=== PATIENT | female | born 2000 | race Caucasian/White ===

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

== ENCOUNTER 2019-02-17 00:52 | Emergency (ER) | payer BC ==
--- OUTSIDE RECORDS SUMMARY | 2019-02-17 01:08 | XMS REPORT | Continuity of Care Document ---
:2000 External Reference #:[id number] Author Name Maite Salter Care Team Providers Name Role Phone Jim Rucker M.D. Care Team Information Professional Fee Coder Unavailable Payers Date Identification Numbers Payment Provider Subscriber Policy Number: [id number] BS Of REHANA Alexis PayID: [id number] [address] [address] [place] [address] Advance Directives Description No Information Available Problems Active Problems Provider Date Trigeminal neuralgia Jim Rucker M.D. 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-handed Tobacco Use Start: Unknown Never Smoked Cigarettes Tobacco Use Start: Unknown Never Smoked Cigars Tobacco Use Start: Unknown Never Smoked A Pipe Smokeless Tobacco Never Used Smokeless Tobacco ETOH Use Denies alcohol use Tobacco Use Start: Unknown Patient has never smoked Recreational Drug Use Denies Drug Use Smoking Status Reviewed: 02/15/19 Patient has never smoked Exercise Type/Frequency Does not exercise Allergies, Adverse Reactions, Alerts Active Allergies Reaction Severity Comments Date Omnicef 10/31/2017 Inactive Allergies NKDA 04/12/2016 Medications Active Medications SIG Qnty Indications Ordering Provider Date Lyrica take 1 pill 60caps G50.0 Jim Rucker, 02/19/2018 150mg Capsules by mouth M.D. twice a day Carbamazepine ER take 3 by 180caps G50.0 Jim Rucker, 12/11/2017 100mg mouth twice a M.D. Caps ER 12HR day Calcium + D3 1 by mouth Unknown every day [id number] Tablets Escitalopram Oxalate 1 by mouth Unknown 5mg every day Tablets Escitalopram Oxalate 1 by mouth Unknown 20mg every day Tablets Fish Oil Burp-Less 1 by mouth Unknown 1000mg every day Capsules History Medications Lyrica Take 1 by mouth 60caps G50.0 [facility], 01/05/2018 - 75mg Capsules twice a day M.D. 02/19/2018 Lyrica 1 by mouth 60caps G50.0 [facility], 12/22/2017 - 50mg Capsules twice a day M.D. 01/05/2018 Carbamazepine ER take 2 by mouth 180caps G50.0 [facility], 2017 - 100mg twice a day M.D. 12/11/2017 Caps ER 12HR Carbamazepine ER Take 2 by mouth 120caps G50.0 [facility], 2017 - 100mg twice a day M.D. 12/08/2017 Caps ER 12HR Augmentin 1 by mouth 20tabs [facility], 04/12/2016 - 875-125mg twice a day for M.D. 11/05/2017 Tablets 10 days Celexa 1 by mouth Unknown - 20mg Tablets every day 11/05/2017 Vitamin D by mouth Unknown - 1000Unit everyday 11/05/2017 Tablets Trazodone HCL 1/2-1 tablet at Unknown - 50mg bedtime as 11/23/2017 Tablets needed Hydroxyzine HCL 1-2 tablets by Unknown - 25mg mouth every 8 08/02/2018 Tablets hours as needed for anxiety. Amethia daily- pt Unknown - stopped 02/18/2018 0.15-0.03&0.01mg 02/19/18 Tablets Immunizations Description No Information Available Vital Signs Date Vital Result Comment 02/15/2019 1:13pm Height 68.5 inches 5'8.50" Weight 324.00 lb Heart Rate 80 /min BP Systolic 124 mmHg BP Diastolic 82 mmHg BMI (Body Mass Index) 48.5 kg/m2 08/03/2018 9:25am Height 68.5 inches 5'8.50" Weight 320.00 lb Heart Rate 76 /min BP Systolic 112 mmHg BP Diastolic 80 mmHg Respiratory Rate 16 /min BMI (Body Mass Index) 47.9 kg/m2 Height Percentile 95 % Weight Percentile >97th 02/19/2018 11:20am Height 68.5 inches 5'8.50" Weight 300.00 lb Declined Heart Rate 78 /min BP Systolic Sitting 128 mmHg BP Diastolic Sitting 82 mmHg BMI (Body Mass Index) 44.9 kg/m2 Height Percentile 95 % Weight Percentile >97th 12/22/2017 3:38pm Height 68.5 inches 5'8.50" Weight 290.00 lb Heart Rate 74 /min BP Systolic Sitting 126 mmHg BP Diastolic Sitting 68 mmHg Respiratory Rate 16 /min BMI (Body Mass Index) 43.4 kg/m2 Blood Pressure Percentile 0 % Height Percentile 95 % Weight Percentile >97th 11/24/2017 9:16am Height 68.5 inches 5'8.50" Weight 290.00 lb Heart Rate 88 /min BP Systolic Sitting 132 mmHg BP Diastolic Sitting 88 mmHg Respiratory Rate 16 /min BMI (Body Mass Index) 43.4 kg/m2 Blood Pressure Percentile 0 % Height Percentile 95 % Weight Percentile >97th 11/10/2017 12:50pm Height 68.5 inches 5'8.50" Weight 294.00 lb without shoes Heart Rate 100 /min BP Systolic 150 mmHg Rue lg cuff BP Diastolic 72 mmHg Rue lg cuff BP Systolic Sitting 144 mmHg Lue lg cuff BP Diastolic Sitting 70 mmHg Lue lg cuff BP Systolic Standing 140 mmHg Lue lg cuff BP Diastolic Standing 78 mmHg Lue lg cuff BP Systolic Recheck 128 mmHg Rue Lg cuff-MD BP Diastolic Recheck 80 mmHg Rue Lg cuff-MD Respiratory Rate 17 /min BMI (Body Mass Index) 44.0 kg/m2 Blood Pressure Percentile 99 % Height Percentile 95 % Weight Percentile >97th 04/12/2016 2:20pm Weight 240.00 lb Heart Rate 78 /min BP Systolic Sitting 120 mmHg BP Diastolic Sitting 82 mmHg Blood Pressure Percentile 0 % Weight Percentile >97th Results Test Date Facility Test Result H/L Range Note CBC Auto Diff 08/10/2018 [facility] White Blood 8.5 10^3/uL N 3.5-10.[address] [place] [address] [phone] Red Blood Count 4.66 10^6/uL N 4.00-5.40 Hemoglobin 12.9 g/dL N 12.0-16.0 Hematocrit 39 % N 35-47 Mean Corpuscular Volume 84 fL N 80-97 Mean Corpuscular Hemoglobin 28 pg N 27-31 Mean Corpuscular HGB Conc 33 g/dL N 31-36 Red Cell Distribution Width 15 % N 10.5-15 Platelet Count 241 10^3/uL N 150-450 Mean Platelet Volume 9.2 um3 N 7.4-10.4 Abs Neutrophils 5.7 10^3/uL N 1.5-7.7 Abs Lymphocytes 1.8 10^3/uL N 1.0-4.8 Abs Monocytes 0.7 10^3/uL N 0-0.8 Abs Eosinophils 0.2 10^3/uL N 0-0.6 Abs Basophils 0.1 10^3/uL N 0-0.2 Abs Nucleated RBC 0 10^3/uL Granulocyte % 67.5 % N 38-83 Lymphocyte % 21.1 % Low 25-47 Monocyte % 8.3 % High 0-7 Eosinophil % 2.4 % N 0-6 Basophil % 0.7 % N 0-2 Nucleated Red Blood Cells % 0.1 Comp Metabolic Panel 08/10/2018 [facility] Sodium 138 mmol/L N 135-[address] [place] [address] [phone] Potassium 3.9 mmol/L N 3.5-5.0 Chloride 107 mmol/L N 101-111 Co2 Carbon Dioxide 27 mmol/L N 22-32 Anion Gap 4 mmol/L N 2-11 Glucose 95 mg/dL N 70-100 Blood Urea Nitrogen 10 mg/dL N 6-24 Creatinine 0.60 mg/dL N 0.51-0.95 BUN/Creatinine Ratio 16.7 N 8-20 Calcium 9.2 mg/dL N 8.6-10.3 Total Protein 6.5 g/dL N 6.4-8.9 Albumin 4.0 g/dL N 3.2-5.2 Globulin 2.5 g/dL N 2-4 Albumin/Globulin Ratio 1.6 N 1-3 Total Bilirubin 0.30 mg/dL N 0.2-1.0 Alkaline Phosphatase 123 U/L High 34-104 Alt 15 U/L N 7-52 Ast 16 U/L N 13-39 Egfr Non- 128.8 >60 Egfr 155.8 >60 1 Laboratory 08/10/2018 [facility] Carbamazepine 4.0 N 4.0-12.0 test finding [address] (Tegretol) g/mL [place], [place] [id number] [phone] Laboratory 12/25/2017 [facility] C Reactive 21.18 High < 5.00 2 test finding [address] Protein mg/[place] [address] [phone] Erythrocyte Sed Rate 27 mm/Hr High 0-14 3 Laboratory 12/18/2017 [facility] Carbamazepine 9.9 N 4.0-12.0 test finding [address] (Tegretol) g/mL [place], [place] [id number] [phone] Laboratory 11/29/2017 [facility] Erythrocyte Sed 25 mm/Hr High 0-14 test finding [address] [place] [address] [phone] C Reactive Protein 27.79 mg/L High < 5.00 4 Anca Panel For 11/29/2017 [facility] Myeloperoxidase AB < 0.2 U [address] [place] [address] [phone] Proteinase 3 AB < 0.2 U 6 Laboratory test 11/29/2017 [facility] Carbamazepine 8.3 g/mL N 4.0-12.[address] (Tegretol) [place] [address] [phone] Complement C3 143 mg/dL 75 - 175 7 Complement C4 25 mg/dL 14 - 40 8 Nuclear Ab (Eveline) by Ifa, IgG <1:80 (Negative) 9 CBC Auto Diff 11/29/2017 [facility] White Blood 6.6 10^3/uL N 3.5-10.[address] [place] [address] [phone] Red Blood Count 4.97 10^6/uL N 4.0-5.4 Hemoglobin 12.2 g/dL N 12.0-16.0 Hematocrit 38 % N 35-47 Mean Corpuscular Volume 76 fL Low 80-97 Mean Corpuscular Hemoglobin 25 pg Low 27-31 Mean Corpuscular HGB Conc 32 g/dL N 31-36 Red Cell Distribution Width 17 % High 10.5-15 Platelet Count 303 10^3/uL N 150-450 Mean Platelet Volume 9 um3 N 7.4-10.4 Abs Neutrophils 3.9 10^3/uL N 1.5-7.7 Abs Lymphocytes 1.8 10^3/uL N 1.0-4.8 Abs Monocytes 0.7 10^3/uL N 0-0.8 Abs Eosinophils 0.1 10^3/uL N 0-0.6 Abs Basophils 0.1 10^3/uL N 0-0.2 Abs Nucleated RBC 0 10^3/uL Granulocyte % 58.4 % N 38-83 Lymphocyte % 27.4 % N 25-47 Monocyte % 11.0 % High 1-9 Eosinophil % 2.1 % N 0-6 Basophil % 1.1 % N 0-2 Nucleated Red Blood Cells % 0.1 1 Because ethnic data is not always readily available, this report includes an eGFR for both -Americans and non- Americans. The National Kidney Disease Education Program (NKDEP) does not endorse the use of the MDRD equation for patients that are not between the ages of 18 and 70, are , have extremes of body size, muscle mass, or nutritional status, or are non- or non-. According to the National Kidney Foundation, irrespective of diagnosis, the stage of the disease is based on the level of kidney function: Stage Description GFR(mL/min/1.73 m(2)) 1 Kidney damage with normal or decreased GFR 90 2 Kidney damage with mild decrease in GFR 60-89 3 Moderate decrease in GFR 30-59 4 Severe decrease in GFR 15-29 5 Kidney failure <15 (or dialysis) 2 Acute inflammation: >10.00 3 Copy Result to: AZRA GAINES ([id number]) 4 Acute inflammation: >10.00 5 REFERENCE VALUE <0.4 (Negative) 6 REFERENCE VALUE <0.4 (Negative) Test Performed by: [facility] [place] [address] [place] [address] 7 Test Performed by: [facility] [place] [address] [place] [address] 8 Test Performed by: [facility] [address] [place] [address] 9 <1:80 (Negative) REFERENCE VALUE <1:80 (Negative) Test Performed by: [address] [address] Procedures Date Code Description Status 05/23/2018 67596 Colonoscopy Flexible W/Biopsy Completed 05/23/2018 78775 Endoscopy Upper GI Biopsy Completed 05/23/2018 95191000 Colonoscopy Completed 11/10/2017 18632 EKG Tracing & Interpretation Completed Encounters Type Date Location Provider Dx Diagnosis Office Visit 08/03/2018 [facility] Jim Rucker G50.0 Trigeminal 9:15a [facility] neuralgia Office Visit 02/19/2018 [facility] Jim Rucker G50.0 Trigeminal 11:00a [facility] neuralgia Office Visit 12/22/2017 [facility] Jim Rucker G50.0 Trigeminal 3:15p [facility] neuralgia Office Visit 11/24/2017 [facility] Jim Rucker G50.0 Trigeminal 9:00a [facility] neuralgia Office Visit 11/10/2017 [facility] Chilo Carson, R06.02 Shortness of 1:00p Is[facility] Champagne, FACC, FASNC breath I10 Essential (primary) hypertension Z82.49 Family hx of ischem heart dis and oth dis of the circ sys Office Visit 04/12/2016 2:15p [facility] Pfeiffer.90 Acute tonsillitis, C.M.A. AT Sarah, M.D. unspecified [place] Office Visit 02/08/2013 3:00p Ag Vargas 729.5 Pain In Limb Neurolog[facility] 782.0 Skin Sensation Disturbance Plan of Treatment Future Appointment(s):08/19/2019 1:30 pm - Adonis Romero N.P. at [facility]02/15/2019 - Adonis Romero N.P.G50.0 Trigeminal neuralgiaFollow up:6 monthsRecommendations:have labs checked first thing in the morning before taking medications
[2019-02-17 01:46] LABS: ABS Basophils 0.1 10^3/ul (0-0.2); ABS Eosinophils 0.1 10^3/ul (0-0.6); ABS Lymphocytes 2.7 10^3/ul (1.0-4.8); ABS Neutrophils 5.7 10^3/ul (1.5-7.7); Eosinophil % 1.5 %; Hematocrit 43 % (35-47); Hemoglobin 14.2 g/dL (12.0-16.0); Lymphocyte % 27.9 %; Mean Corpuscular HGB Conc 33 g/dL (31-36); Mean Corpuscular Hemoglobin 29 pg (27-31); Mean Corpuscular Volume 86 fL (80-97); Mean Platelet Volume 8.4 fL (7.4-10.4); Nucleated Red Blood Cells % 0.1; Platelet Count 261 10^3/uL (150-450); Red Blood Count 4.97 10^6 /uL (3.70-4.87); Red Cell Distribution Width 15 % (10.5-15); White Blood Count 9.7 10^3/uL (3.5-10.8)
[2019-02-17] MEDS ORDERED: NS 0.9% 1000 ML** 1,000 ML IV ONE (01:48)
[2019-02-17] MEDS ORDERED: Ketorolac INJ* 30 MG/ML 1 ML VIAL IV PUSH ONE (01:49)
--- NOTE | 2019-02-17 01:55 | ED ---
GI/ HPI - HPI Summary HPI Summary: 19 year old female presents with abdominal pain for the past 4 days. States the pain is mostly in her right upper quadrant and around her bellybutton. She denies any nausea vomiting. No urinary symptoms. No abnormal vaginal discharge. No fevers. No diarrhea or constipation. She states movement makes the pain worse. She denies any blood in his stool. she denies any chest pain or shortness of breath. No previous abdominal surgeries. Has a history of trigeminal neuralgia. Hasn't tried anything for her symptoms. Pain does not change with food. Has had a normal appetite. - History of Current Complaint Chief Complaint: EDAbdPain Time Seen by Provider: 02/17/19 01:29 Stated Complaint: SHARP PAIN IN ABD PER PT Hx Last Menstrual Period: 12/21/12 Pain Intensity: 6 - Allergy/Home Medications Allergies/Adverse Reactions: Allergies Allergy/AdvReac Type Severity Reaction Status Date / Time cefdinir [From Omnicef] Allergy Rash Verified 05/17/18 16:42 PMH/Surg Hx/FS Hx/Imm Hx Endocrine/Hematology History: Reports: Hx Anemia Denies: Hx Diabetes Cardiovascular History: Denies: Hx Hypertension, Hx Pacemaker/ICD, Other Cardiovascular Problems/ Disorders Respiratory History: Denies: Other Respiratory Problems/Disorders GI History: Denies: Other GI Disorders History: Denies: Hx Renal Disease Musculoskeletal History: Reports: Hx Scoliosis Denies: Other Musculoskeletal History Sensory History: Reports: Hx Contacts or Glasses - GLASSES Denies: Hx Hearing Aid Opthamlomology History: Reports: Hx Contacts or Glasses - GLASSES Neurological History: Reports: Hx Nerve Disease - trigeminal neuralgia, Hx Seizures - age 3 Psychiatric History: Reports: Hx Anxiety, Hx Depression, Hx Panic Disorder - Surgical History Surgery Procedure, Year, and Place: tonsilectomy Hx Anesthesia Reactions: No Infectious Disease History: No Infectious Disease History: Denies: Traveled Outside the [place] in Last 30 Days - Family History Known Family History: Positive: Non-Contributory - Social History Alcohol Use: Rare Alcohol Amount: social Substance Use Type: Reports: None Smoking Status (MU): Never Smoked Tobacco Review of Systems Negative: Fever Negative: Chest Pain Negative: Shortness Of Breath Positive: Abdominal Pain. Negative: Vomiting, Diarrhea, Nausea All Other Systems Reviewed And Are Negative: Yes Physical Exam Triage Information Reviewed: Yes Vital Signs On Initial Exam: Initial Vitals Temp Pulse Resp BP Pulse Ox 98.1 F 79 18 155/105 99 02/17/19 00:55 02/17/19 00:55 02/17/19 00:55 02/17/19 00:55 02/17/19 00:55 Vital Signs Reviewed: Yes Appearance: Positive: Well-Appearing Skin: Positive: Warm, Dry Head/Face: Positive: Normal Head/Face Inspection Eyes: Positive: Normal, Conjunctiva Clear ENT: Positive: Pharynx normal Respiratory/Lung Sounds: Positive: Clear to Auscultation, Breath Sounds Present Cardiovascular: Positive: Normal, RRR Abdomen Description: Positive: Soft, Other: - tenderness in RUQ, pos montoya Bowel Sounds: Positive: Present Musculoskeletal: Positive: Normal Neurological: Positive: Normal Psychiatric: Positive: Normal Diagnostics - Vital Signs Vital Signs Temp Pulse Resp BP Pulse Ox 02/17/19 00:55 98.1 F 79 18 155/105 99 - Laboratory Lab Results: Lab Results 02/17/19 Range/Units 01:36 WBC 9.7 (3.5-10.8) 10^3/uL RBC 4.97 H (3.70-4.87) 10^6 /uL Hgb 14.2 (12.0-16.0) g/dL Hct 43 (35-47) % MCV 86 (80-97) fL MCH 29 (27-31) pg MCHC 33 (31-36) g/dL RDW 15 (10.5-15) % Plt Count 261 (150-450) 10^3/uL MPV 8.4 (7.4-10.4) fL Neut % (Auto) 58.8 % Lymph % (Auto) 27.9 % [place] % (Auto) 10.6 % Eos % (Auto) 1.5 % Baso % (Auto) 1.2 % Absolute Neuts (auto) 5.7 (1.5-7.7) 10^3/ul Absolute Lymphs (auto) 2.7 (1.0-4.8) 10^3/ul Absolute Monos (auto) 1.0 H (0-0.8) 10^3/ul Absolute Eos (auto) 0.1 (0-0.6) 10^3/ul Absolute Basos (auto) 0.1 (0-0.2) 10^3/ul Absolute Nucleated RBC 0.0 10^3/ul Nucleated RBC % 0.1 Result Diagrams: 02/17/19 01:36 02/17/19 01:36 Lab Statement: Any lab studies that have been ordered have been reviewed, and results considered in the medical decision making process. Re-Evaluation - Re-Evaluation First Eval Re-Evaluation Time: 02:15 Comment: patient states narcotics make her feel awful. only wants toradol for pain. GIGU Course/Dx - Course Course Of Treatment: 19 year old female presents with abdominal pain for the past 4 days. States the pain is mostly in her right upper quadrant and around her bellybutton. She denies any nausea vomiting. No urinary symptoms. No abnormal vaginal discharge. No fevers. No diarrhea or constipation. She states movement makes the pain worse. She denies any blood in his stool. she denies any chest pain or shortness of breath. No previous abdominal surgeries. Has a history of trigeminal neuralgia. Hasn't tried anything for her symptoms. Pain does not change with food. Has had a normal appetite. on exam tenderness in RUQ. no rebound. pos montoya tenderness. wbc normal. electrolyte normal. crp elevated 13. patient will be signed out to dr campbell pending CT for disposition. - Diagnoses Differential Diagnoses - Female: Appendicitis, Gall Bladder Disease, Gastritis Provider Diagnoses: Abdominal pain Discharge - Sign-Out/Discharge Documenting (check all that apply): Sign-Out Patient Signing out patient TO: Margret Campbell - Discharge Plan Referrals: No Primary Care Phys,NOPCP [Primary Care Provider] -
[2019-02-17 02:04] LABS: ALT 16 U/L (7-52); AST 16 U/L (13-39); Albumin 4.4 g/dL (3.2-5.2); Albumin/Globulin Ratio 1.6 (1-3); Alkaline Phosphatase 124 U/L (34-104); Anion Gap 6 mmol/L (2-11); BUN/Creatinine Ratio 21.3 (8-20); Blood Urea Nitrogen 13 mg/dL (6-24); C Reactive Protein 13.94 mg/L (<8.01); CO2 Carbon Dioxide 28 mmol/L (22-32); Calcium 9.6 mg/dL (8.6-10.3); Chloride 103 mmol/L (101-111); EGFR African American 151.3 (>60); Globulin 2.8 g/dL (2-4); Glucose 100 mg/dL (70-100); Potassium 3.8 mmol/L (3.5-5.0); Sodium 137 mmol/L (135-145); Total Protein 7.2 g/dL (6.4-8.9)
[2019-02-17 02:11] LABS: HCG Pregnancy < 0.60 mIU/mL
[2019-02-17] MEDS ORDERED: Iohexol 300* (CONTRAST) 10 ML SDV IV ONE (02:48)
[2019-02-17 03:54] LABS: Urine Appearance Clear; Urine Bilirubin Negative (Negative); Urine Blood Negative (Negative); Urine Color Straw; Urine Glucose Negative (Negative); Urine Ketones Negative (Negative); Urine Nitrite Negative (Negative); Urine Protein Negative (Negative); Urine Specific Gravity > 1.060 (1.010-1.030); Urine Urobilinogen Negative (Negative)
--- NOTE | 2019-02-17 04:50 | ED ---
Progress - Progress Note Progress Note: Patient was signed out from MARY ANN Van to Margret Campbell MD during a shift change on 02/17/19. Patient is pending abdomen/pelvis CT results. Re-Evaluation - Re-Evaluation First Eval Re-Evaluation Time: 02:15 Comment: patient states narcotics make her feel awful. only wants toradol for pain. Course/Dx - Course Course Of Treatment: 19 year old female presents with abdominal pain for the past 4 days. States the pain is mostly in her right upper quadrant and around her bellybutton. She denies any nausea vomiting. No urinary symptoms. No abnormal vaginal discharge. No fevers. No diarrhea or constipation. She states movement makes the pain worse. She denies any blood in his stool. she denies any chest pain or shortness of breath. No previous abdominal surgeries. Has a history of trigeminal neuralgia. Hasn't tried anything for her symptoms. Pain does not change with food. Has had a normal appetite. on exam tenderness in RUQ. no rebound. pos montoya tenderness. wbc normal. electrolyte normal. crp elevated 13. patient will be signed out to dr campbell pending CT for disposition. I spoke with the patient and informed her of the CT results. She will be d/c home with a dx of abdominal pain and instructions to follow up with her PCP on 02/18/19. - Diagnoses Provider Diagnoses: Abdominal pain Discharge - Sign-Out/Discharge Documenting (check all that apply): Patient Departure - D/C home, Receiving Sign -Out Receiving patient FROM: Marina Trejo - Pending abdomen/pelvis CT Patient Received Moderate/Deep Sedation with Procedure: No - Discharge Plan Condition: Stable Disposition: HOME Patient Education Materials: Abdominal Pain (ED) Referrals: [facility] [Outside] - 1 Day Additional Instructions: Follow up with your primary care physician or the [facility] on Monday02/18/19. PLEASE RETURN TO THE ED IMMEDIATELY FOR WORSENING OR CONCERNING SYMPTOMS. - Billing Disposition and Condition Condition: STABLE Disposition: Home - Attestation Statements Document Initiated by Scribe: Yes Documenting Scribe: Hernesto Gipson Provider For Whom Scribe is Documenting (Include Credential): Margret Campbell MD Scribe Attestation: Hernesto Tay, scribed for Margret Campbell MD on 02/17/19 at 0604. Jaime Documentation Reviewed: Yes Provider Attestation: The documentation as recorded by the scribe, Hernesto Gipson accurately reflects the service I personally performed and the decisions made by meKaren MD Status of Scrbruce Document: Viewed Diagnostics - Vital Signs Vital Signs Temp Pulse Resp BP Pulse Ox 02/17/19 03:22 75 110/79 99 02/17/19 03:09 78 112/94 100 02/17/19 03:03 79 100 02/17/19 02:23 79 133/106 99 02/17/19 02:00 88 100 02/17/19 01:53 81 100 02/17/19 01:52 139/97 02/17/19 00:55 98.1 F 79 18 155/105 99 - Laboratory Lab Results: Lab Results 02/17/19 Range/Units 01:36 WBC 9.7 (3.5-10.8) 10^3/uL RBC 4.97 H (3.70-4.87) 10^6 /uL Hgb 14.2 (12.0-16.0) g/dL Hct 43 (35-47) % MCV 86 (80-97) fL MCH 29 (27-31) pg MCHC 33 (31-36) g/dL RDW 15 (10.5-15) % Plt Count 261 (150-450) 10^3/uL MPV 8.4 (7.4-10.4) fL Neut % (Auto) 58.8 % Lymph % (Auto) 27.9 % [place] % (Auto) 10.6 % Eos % (Auto) 1.5 % Baso % (Auto) 1.2 % Absolute Neuts (auto) 5.7 (1.5-7.7) 10^3/ul Absolute Lymphs (auto) 2.7 (1.0-4.8) 10^3/ul Absolute Monos (auto) 1.0 H (0-0.8) 10^3/ul Absolute Eos (auto) 0.1 (0-0.6) 10^3/ul Absolute Basos (auto) 0.1 (0-0.2) 10^3/ul Absolute Nucleated RBC 0.0 10^3/ul Nucleated RBC % 0.1 Result Diagrams: 02/17/19 01:36 02/17/19 01:36 Lab Statement: Any lab studies that have been ordered have been reviewed, and results considered in the medical decision making process. - CT Abdomen/Pelvis CT CT Interpretation Completed By: Radiologist Summary of CT Findings: 03:57 - 1. A 5.3 x 4.6 cm hypervascular lesion in the posterior aspect of the right hepatic lobe cyst which may represent benign hypervascular tumor such as. adenoma or FNH. If clinically indicated, further evaluation with MRI or Tc-99m. sulfur colloid scan may be considered. 2. Mild mucosal thickening of the distal stomach and proximal small bowel which. is nonspecific however may be seen in gastroenteritis. ED Physician has reviewed this imaging report.
[2019-02-17 05:20] VITALS: BP 134/79
== END 2019-02-17 05:00 | disposition home or self-care (01) ==
LOC: ED 00:52
DX: R10.11 Right upper quadrant pain (principal)
CPT/HCPCS: 36415; 74177; 80053; 81003; 83690; 84702; 85025; 86140; 96361; 96374; 99283; J1885; Q9967

== ENCOUNTER 2019-03-06 09:30 | Emergency (ER) | payer BC ==
--- OUTSIDE RECORDS SUMMARY | 2019-03-06 09:43 | XMS REPORT | Continuity of Care Document ---
:2000 External Reference #:[id number] Author Name Rosangela Nicci Care Team Providers Name Role Phone Bridgette Conn NP Primary Care Physician Unavailable Payers Date Identification Numbers Payment Provider Subscriber Policy Number: [id number] [employer] Leslie Alexis Group Number: [id number] [address] [address] PayID: [id number] ChanningPARVIZ matos [id number] Advance Directives Description No Information Available Problems Active Problems Provider Date Dyspnea Chilo Carson M.D., [facility], [facility] Onset: 11/10/2017 Essential hypertension Chilo Carson M.D., [facility], [facility] Onset: 11/10/2017 Trigeminal neuralgia Jim Rucker M.D. Onset: 11/24/2017 Simple constipation Todd Lundberg MD Onset: 02/18/2003 Note: benign patten 02/06/19 Seizure Todd Lundberg MD Onset: 02/18/2019 Family History Date Family Member(s) Observation Comments General Heart Disease : (09/2016) Father due to VT Father Cardiomyopathy Mother anxiety Social History Type [...] Use Denies Drug Use Smoking Status Reviewed: 02/18/19 Patient has never smoked Exercise Type/Frequency Does not exercise Allergies, Adverse Reactions, Alerts Active Allergies Reaction Severity Comments Date Omnicef 10/31/2017 Inactive Allergies NKDA 04/12/2016 Medications Active Medications SIG Qnty Indications Ordering Provider Date Lyrica take 1 pill 60caps G50.0 [facility], 02/19/2018 150mg Capsules by mouth M.D. twice a day Carbamazepine ER take 3 by 180caps G50.0 [facility], 12/11/2017 100mg mouth twice a M.D. Caps ER 12HR day Escitalopram Oxalate 1 by mouth Unknown 5mg every day Tablets Escitalopram Oxalate 1 by mouth Unknown 20mg every day Tablets History Medications Lyrica Take 1 by mouth 60caps G50.0 [facility], 01/05/2018 - 75mg Capsules twice a day M.D. 02/19/2018 Lyrica 1 by mouth 60caps G50.0 [facility], 12/22/2017 - 50mg Capsules twice a day M.D. 01/05/2018 Carbamazepine ER take 2 by mouth 180caps G50.0 [facility], 2017 - 100mg twice a day M.D. 12/11/2017 Caps ER 12HR Carbamazepine ER Take 2 by mouth 120caps G50.0 [facility], 2017 - 100mg twice a day M.D. 12/08/2017 Caps ER 12HR Augmentin 1 by mouth 20tabs Freeman Smith, 04/12/2016 - 875-125mg twice a day for M.D. 11/05/2017 Tablets 10 days Celexa 1 by mouth Unknown - 20mg Tablets every day 11/05/2017 Calcium + D3 1 by mouth Unknown - every day Unknown [id number] Tablets Vitamin D by mouth Unknown - 1000Unit everyday 11/05/2017 Tablets Trazodone HCL 1/2-1 tablet at Unknown - 50mg bedtime as 11/23/2017 Tablets needed Hydroxyzine HCL 1-2 tablets by Unknown - 25mg mouth every 8 08/02/2018 Tablets hours as needed for anxiety. Amethia daily- pt Unknown - stopped 02/18/2018 0.15-0.03&0.01mg 02/19/18 Tablets Fish Oil Burp-Less 1 by mouth Unknown - every day Unknown 1000mg Capsules Immunizations Description No Information Available Vital Signs Date Vital Result Comment 02/18/2019 4:31pm Height 68.5 inches 5'8.50" Weight 325.00 lb Heart Rate 84 /min BP Systolic 144 mmHg BP Diastolic 98 mmHg O2 % BldC Oximetry 97 % BMI (Body Mass Index) 48.7 kg/m2 02/15/2019 1:13pm Height 68.5 inches 5'8.50" Weight [...] H/L Range Note CBC Auto Diff 08/10/2018 [facility] White Blood 8.5 10^3/uL N 3.5-10.[address] [place] [address] [phone] Red Blood Count 4.66 10^6/uL N 4.00-5.40 [...] Cells % 0.1 Comp Metabolic Panel 08/10/2018 [facility] Sodium 138 mmol/L N 135-[address] [place] [address] [phone] Potassium 3.9 mmol/L N 3.5-5.0 Chloride 107 [...] >60 Egfr 155.8 >60 1 Laboratory 08/10/2018 [facility] Carbamazepine 4.0 N 4.0-12.0 test finding [address] (Tegretol) g/[place] [address] [phone] Laboratory 12/25/2017 [facility] C Reactive 21.18 High < 5.00 2 test finding [address] Protein mg/[place] [address] [phone] Erythrocyte Sed Rate 27 mm/Hr High 0-14 3 Laboratory test 12/18/2017 [facility] Carbamazepine 9.9 g/mL N 4.0-12.[address] (Tegretol) [place] [address] [phone] CBC Auto Diff 11/29/2017 [facility] White Blood Count 6.6 N 3.5-10.[address] 10^3/[place] [address] [phone] Red Blood Count 4.97 10^6/uL N 4.0-5.4 [...] 0-2 Nucleated Red Blood Cells % 0.1 Laboratory test 11/29/2017 [facility] Carbamazepine 8.3 g/mL N 4.0-12.[address] (Tegretol) [place] [address] [phone] Complement C3 143 mg/dL 75 - 175 4 Complement C4 25 mg/dL 14 - 40 5 Nuclear Ab (Eveline) by Ifa, IgG <1:80 (Negative) 6 Anca Panel For 11/29/2017 [facility] Myeloperoxidase AB < 0.2 U [address] [place] [address] [phone] Proteinase 3 AB < 0.2 U 8 Laboratory test 11/29/2017 [facility] Erythrocyte Sed 25 mm/Hr High 0-[address] [place] [address] [phone] C Reactive Protein 27.79 mg/L High < 5.00 9 1 Because ethnic data is not always [...] >10.00 3 Copy Result to: AZRA GAINES ([id number]) 4 Test Performed by: [address] [id number] 5 Test Performed by: [address] [address] 6 <1:80 (Negative) REFERENCE VALUE <1:80 (Negative) Test Performed by: [facility] - [address] [address] 7 REFERENCE VALUE <0.4 (Negative) 8 REFERENCE VALUE <0.4 (Negative) Test Performed by: [address] [address] 9 Acute inflammation: >10.00 Procedures Date Code Description Status 05/23/2018 69045 Colonoscopy Flexible W/Biopsy Completed 05/23/2018 00141 Endoscopy Upper GI Biopsy Completed 05/23/2018 40703486 Colonoscopy Completed 11/10/2017 20941 EKG Tracing & Interpretation Completed Encounters Type Date Location Provider Dx Diagnosis Office Visit 08/03/2018 Pedro Laboy0.Sander Trigeminal 9:15a [facility] [employer] M.[facility]. neuralgia Office Visit 02/19/2018 Nikita Laboy Trigeminal 11:00a [facility] M.[facility] neuralgia Office Visit 12/22/2017 Pedro Laboy0.0 Trigeminal 3:15p [facility] M.D. neuralgia Office Visit 11/24/2017 [facility] Oswald0.0 Trigeminal 9:00a Clinic M.D. neuralgia Office Visit 11/10/2017 [place] Carson, R06.02 Shortness of 1:00p Isatu Champagne, FACC, FASNC breath I10 Essential (primary) hypertension Z82.49 Family hx of ischem heart dis and oth dis of the circ sys Office Visit 04/12/2016 2:15p [facility].90 Acute tonsillitis, C.M.A. AT [facility] unspecified Fisher Office Visit 02/08/2013 3:00p [place] [facility] Vargas 729.5 Pain In Limb Neurologic [facility] 782.0 Skin Sensation Disturbance Plan of Treatment Future Appointment(s):08/19/2019 1:30 pm - Adonis Romero N.P. at [place] [facility]02/18/2019 - Todd Lundberg, MDR10.11 Right upper quadrant painE66.9 Obesity, unspecifiedNew Xrays:US Gallbladder, Ordered: US Liver, Ordered: 02/18/19
[2019-03-06] MEDS ORDERED: Ketorolac INJ* 30 MG/ML 1 ML VIAL IV ONE (10:23)
[2019-03-06] MEDS ORDERED: Ondansetron INJ* 2 MG/ML VIAL IV ONE (10:23)
--- NOTE | 2019-03-06 10:27 | ED ---
Abdominal Pain/Female - HPI Summary HPI Summary: Pt is a 19 y/o F presenting to the ED with a chief complaint of abd pain in the RLQ first onset a couple of weeks ago. The pt states she was here recently for the same pain, but it has since progressively gotten worse. She currently rates it at a 7/10 and describes it as sharp and stabbing. Her abd pain is accompanied by nausea, vomiting, disruption of sleep, and painful stools. She denies chest pain. - History of Current Complaint Chief Complaint: EDAbdPain Stated Complaint: VOMITING PER PT Time Seen by Provider: 03/06/19 10:11 Hx Obtained From: Patient Hx Last Menstrual Period: 12/21/12 Onset/Duration: Gradual Onset, Lasting Weeks, Still Present Timing: Weeks Severity Initially: Mild Severity Currently: Moderate Pain Intensity: 6 Pain Scale Used: 0-10 Numeric Location: Discrete At: RUQ, Discrete At: RLQ Radiates: No Character: Sharp Aggravating Factor(s): Nothing Alleviating Factor(s): Nothing Associated Signs and Symptoms: Positive: Nausea, Vomiting, Other: - painful stools, sleep disruption. Negative: Chest Pain Allergies/Adverse Reactions: Allergies Allergy/AdvReac Type Severity Reaction Status Date / Time cefdinir [From Omnicef] Allergy Rash Verified 03/06/19 09:36 PMH/Surg Hx/FS Hx/Imm Hx Previously Healthy: Yes Endocrine/Hematology History: Reports: Hx Anemia Denies: Hx Diabetes Cardiovascular History: Denies: Hx Hypertension, Hx Pacemaker/ICD, Other Cardiovascular Problems/ Disorders Respiratory History: Denies: Other Respiratory Problems/Disorders GI History: Denies: Other GI Disorders History: Denies: Hx Renal Disease Musculoskeletal History: Reports: Hx Scoliosis Denies: Other Musculoskeletal History Sensory History: Reports: Hx Contacts or Glasses - GLASSES Denies: Hx Hearing Aid Opthamlomology History: Reports: Hx Contacts or Glasses - GLASSES Neurological History: Reports: Hx Nerve Disease - trigeminal neuralgia, Hx Seizures - age 3 Psychiatric History: Reports: Hx Anxiety, Hx Depression, Hx Panic Disorder - Surgical History Surgery Procedure, Year, and Place: tonsilectomy Hx Anesthesia Reactions: No Infectious Disease History: No Infectious Disease History: Denies: Traveled Outside the [place] in Last 30 Days - Family History Known Family History: Negative: Hypertension - Social History Alcohol Use: Rare Alcohol Amount: socially Hx Substance Use: No Substance Use Type: Reports: None Hx Tobacco Use: No Smoking Status (MU): Never Smoked Tobacco Review of Systems Positive: Other - sleep disruption Negative: Chest Pain Positive: Abdominal Pain, Vomiting, Nausea, Other - painful stools All Other Systems Reviewed And Are Negative: Yes Physical Exam - Summary Physical Exam Summary: Appearance: Well appearing, no pain distress Skin: warm, dry, reflects adequate perfusion Head/face: normal Eyes: EOMI, MARIBELL ENT: normal Neck: supple, non-tender Respiratory: CTA, breath sounds present Cardiovascular: RRR, pulses symmetrical Abdomen: soft, RLQ tenderness Musculoskeletal: normal, strength/ROM intact Neuro: normal, sensory motor intact, A&Ox3 Triage Information Reviewed: Yes Vital Signs On Initial Exam: Initial Vitals Temp Pulse Resp BP Pulse Ox 98.3 F 105 16 158/107 100 03/06/19 09:32 03/06/19 09:32 03/06/19 09:32 03/06/19 09:32 03/06/19 09:32 Vital Signs Reviewed: Yes Diagnostics - Vital Signs Vital Signs Temp Pulse Resp BP Pulse Ox 03/06/19 09:32 98.3 F 105 16 158/107 100 - Laboratory Result Diagrams: 03/06/19 10:41 03/06/19 10:41 Lab Statement: Any lab studies that have been ordered have been reviewed, and results considered in the medical decision making process. - CT CT abd/pelv CT Interpretation Completed By: Radiologist Summary of CT Findings: Mass in the right lobe of liver May represent focal nodular hyperplasia as there appears to be a central scar with hypervascularity. Correlation with MR should beconsidered if clinically warranted. Mildly enlarged mesenteric lymph nodes noted adjacent to the cecum measuring up to 0.8 cm. Normal appendix is identified. No other masses or fluid collections are noted. ED physician has reviewed this report. Abdominal Pain Fem Course/Dx - Course Course Of Treatment: Pt is a 19 y/o F presenting to the ED for worsening abd pain initially onset a couple of weeks ago in the RLQ. The pain is currently rated at 7/10 in severity and described as sharp. She reports associated nausea , vomiting, painful stools, and disruption of sleep. She denies chest pain. On exam, the pt is tender in the RLQ. Bloodwork/UA obtained. CT abd/pelv shows: Mass in the right lobe of liver May represent focal nodular hyperplasia as there appears to be a central scar with hypervascularity. Correlation with MR should beconsidered if clinically warranted. Mildly enlarged mesenteric lymph nodes noted adjacent to the cecum measuring up to 0.8 cm. Normal appendix is identified. No other masses or fluid collections are noted. Pt will be d/c'ed with dx including abd pain and mesenteric adenitis. I discussed the results with the pt who is stable and agreeable with this plan. - Diagnoses Differential Diagnosis: Positive: Appendicitis, Gall Bladder Disease, Pancreatitis, Renal Colic Provider Diagnoses: Abdominal pain, Mesenteric adenitis Discharge - Sign-Out/Discharge Documenting (check all that apply): Patient Departure Patient Received Moderate/Deep Sedation with Procedure: No - Discharge Plan Condition: Stable Disposition: HOME Prescriptions: Tramadol HCl [Ultram] 50 mg PO TID #10 tablet MDD 3 Tramadol HCl [Ultram] 50 mg PO TID #10 tablet MDD 3 Referrals: Kelly Jolly MD [Medical Doctor] - Additional Instructions: Please follow up with Dr. Jolly of gastroenterology within the next 2-3 days. Return to the emergency department with any new or worsening symptoms. - Billing Disposition and Condition Condition: STABLE Disposition: Home - Attestation Statements Document Initiated by Jaime: Yes Documenting Scribe: Mirta Edmonds Provider For Whom Jaime is Documenting (Include Credential): Dami Dyer MD. Scribe Attestation: Mirta Tay, briseidaibed for Dami Dyer MD. on 03/06/19 at 1738. Scribe Documentation Reviewed: Yes Provider Attestation: The documentation as recorded by the briseidaibeMirta accurately reflects the service I personally performed and the decisions made by , Dami Dyer MD. Status of Scribe Document: Viewed
[2019-03-06 11:01] LABS: ABS Eosinophils 0.1 10^3/ul (0-0.6); ABS Lymphocytes 1.5 10^3/ul (1.0-4.8); ABS Monocytes 0.8 10^3/ul (0-0.8); ABS Neutrophils 4.5 10^3/ul (1.5-7.7); Eosinophil % 0.8 %; Hematocrit 41 % (35-47); Hemoglobin 13.8 g/dL (12.0-16.0); Lymphocyte % 22.3 %; Mean Corpuscular HGB Conc 34 g/dL (31-36); Mean Corpuscular Hemoglobin 29 pg (27-31); Mean Corpuscular Volume 86 fL (80-97); Nucleated Red Blood Cells % 0.1; Platelet Count 248 10^3/uL (150-450); Red Blood Count 4.78 10^6 /uL (3.70-4.87); Red Cell Distribution Width 15 % (10.5-15); White Blood Count 6.9 10^3/uL (3.5-10.8)
[2019-03-06 11:06] LABS: INR 1.09 (0.82-1.09)
[2019-03-06 11:12] LABS: Urine Appearance Cloudy; Urine Bilirubin Negative (Negative); Urine Blood Negative (Negative); Urine Color Yellow; Urine Glucose Negative (Negative); Urine Ketones Negative (Negative); Urine Nitrite Negative (Negative); Urine Protein Negative (Negative); Urine Specific Gravity 1.017 (1.010-1.030); Urine Urobilinogen Negative (Negative)
[2019-03-06 11:18] LABS: ALT 14 U/L (7-52); AST 15 U/L (13-39); Albumin 4.1 g/dL (3.2-5.2); Albumin/Globulin Ratio 1.5 (1-3); Alkaline Phosphatase 111 U/L (34-104); Anion Gap 5 mmol/L (2-11); BUN/Creatinine Ratio 17.4 (8-20); Blood Urea Nitrogen 12 mg/dL (6-24); C Reactive Protein 14.26 mg/L (<8.01); CO2 Carbon Dioxide 28 mmol/L (22-32); Calcium 9.5 mg/dL (8.6-10.3); Chloride 104 mmol/L (101-111); EGFR African American 131.2 (>60); EGFR Non-African American 108.5 (>60); Globulin 2.8 g/dL (2-4); Glucose 88 mg/dL (70-100); Potassium 4.1 mmol/L (3.5-5.0); Sodium 137 mmol/L (135-145); Total Protein 6.9 g/dL (6.4-8.9)
[2019-03-06 11:21] LABS: HCG Pregnancy < 0.60 mIU/mL
[2019-03-06] MEDS ORDERED: Iohexol 300* (CONTRAST) 10 ML SDV IV ONE (11:29)
[2019-03-06] MEDS ORDERED: Metoclopramide IV* 5 MG/ML 2 ML VIAL IV ONE (11:36)
[2019-03-06] MEDS ORDERED: Morphine 4 MG/ML VIAL (1 ml) 4 MG/ML VIAL IV ONE (14:40)
[2019-03-06] MEDS ORDERED: NS 0.9% 1000 ML** 1,000 ML IV ONE (16:16)
[2019-03-06 17:36] VITALS: BP 127/89
--- NOTE | 2019-03-06 19:43 | CONS ---
GASTROENTEROLOGY CONSULT REPORT: DATE OF CONSULT: 03/06/19 CONSULTING PROVIDER: ED. LOCATION: The patient was seen in the ED. REASON FOR CONSULT: Abdominal pain and liver lesion on imaging. HISTORY OF PRESENT ILLNESS: Ms. Alexis is a 19-year-old woman with a history of trigeminal neuralgia and depression, who presents to the ER with abdominal pain. On interview, Ms. Alexis states that she has had abdominal pain for the past 2 to 3 weeks. Pain initially started in her mid abdomen and was most notable when sitting or going from sitting to standing position. More recently, the pain has become constant. Pain acutely worsens before having a bowel movement and then improves subsequently. Pain has become more localized in the right mid and right lower quadrants. Pain does not seem to worsen with po intake. She has also noticed nausea and vomiting, particularly after eating, over this same time period. The vomiting occurs approximately 3 times a week on average. She has not noticed any blood in her emesis. She has been having fairly regular bowel movements every day to every other day. She complains of mild reflux, which has not significantly changed from baseline. No NSAID or pain medication use. No fevers or chills. No recent travel. She did have an upper respiratory illness, which was presumed to be viral, shortly before the symptoms started. She had been seen in the ER on 02/17/19 for these symptoms and underwent a CT scan with contrast. This study demonstrated a 5.3 x 4.6 hypervascular lesion in the right hepatic lobe felt to represent either an adenoma or an FNH. She was also noted to have mild mucosal thickening of the distal stomach and proximal small bowel thought to be nonspecific or possibly related to gastroenteritis. She was discharged and had seen Dr. Lundberg for followup. The note from the visit is not available for review, although the patient states that she was started on MiraLAX. She stopped the MiraLAX because she was having stools that were too loose. An abdominal ultrasound was performed on , which demonstrated an ill-defined hyperechoic to isoechoic lesion with irregular borders in the right lobe corresponding with the hypervascular lesion seen on the CT. Hepatic steatosis was also noted. A follow-up MRI of her liver to further evaluate the liver lesion has been ordered. 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 She had several episodes of vomiting and pain is more severe. Presented to ED for evaluation. In the ER, the patient's vital signs were normal. Labs demonstrated normal white count and hemoglobin. Her AST, ALT, and bilirubin were normal. Alk phos minimally elevated to 111. CRP elevated to 14.26, which is similar to 13.94 seen on 02/17/19. Lipase was not elevated. Urinalysis was negative. Repeat CT abdomen and pelvis with IV and oral contrast was performed, which demonstrated a 4.4 cm hypervascular mass in the right lobe of the liver with a central low density lesion suspicions for focal nodular hyperplasia. Gallbladder was normal. Pancreas was normal. Colon was noted to have stool throughout. Several mildly enlarged mesenteric lymph nodes were seen adjacent to the cecum, measuring up to 0.8 cm. Appendix was noted to be normal. GI consulted. PAST MEDICAL HISTORY: 1. Depression. 2. Trigeminal neuralgia. 3. Obesity. ALLERGIES: Cefdinir. PAST SURGICAL HISTORY: Tonsillectomy. FAMILY HISTORY: No known GI or liver disease. 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 Rare social alcohol use. Nonsmoker. No drug use. REVIEW OF SYSTEMS: A complete review of systems is negative except as above. PHYSICAL EXAM: Vital Signs: Temp 98, heart rate 85, blood pressure 127/89, 98% on room air. General: Pleasant young woman. Tired but well-appearing. No acute distress. Mother and family friend at bedside. Of note, the patient's mother is an oyster worker. HEENT: Mucous membranes moist. Anicteric sclerae. Cardiovascular: Regular rate and rhythm. No murmurs, rubs, or gallops. Pulm: Lungs clear to auscultation bilaterally. Abdomen: Soft, nondistended. Tenderness noted to moderate to deep palpation on the right side of the patient's abdomen. There is mild tenderness in the right upper quadrant with increasing tenderness in the right mid abdomen and right lower quadrant. No rebound tenderness or guarding. Extremities: No edema. Skin: No jaundice. DIAGNOSTIC STUDIES/LAB DATA: Labs reviewed in HPI. Normal CBC and INR. Normal comp with the exception of mildly elevated alk phos, which is a chronic finding. CRP elevated, but stable as compared to 2 weeks ago. Lipase negative. Urinalysis was negative. Imaging: CT abdomen and pelvis from 02/17/19 and US from 02/[address] abdomen and pelvis from today reviewed above: hypervascular right lobe liver lesion as well as several small to medium lymph nodes in the mesentery near the cecum. Notably, the patient's gallbladder and appendix were normal appearing. Reviewed with radiology, who felt that the enlarged lymph nodes were suggestive of mesenteric adenitis. IMPRESSION AND RECOMMENDATIONS: Ms. Alexis is a 19-year-old woman with a history of trigeminal neuralgia, who presents to the ER with progressive abdominal pain x2 to 3 weeks' duration as well as associated nausea/vomiting. Ms. Alexis describes several weeks of pain in the right mid to right lower abdomen, which was not clearly related to p.o. intake. Associated with nausea and vomiting intermittently. Symptoms worsened in past 12-24 hours. No change in bowel movements. Labs notable only for an elevated CRP. Imaging notable for hepatic hypervascular lesion suggestive of a focal nodular hyperplasia as well as mildly enlarged mesenteric lymph nodes. Reviewed with the patient and mother that I suspect mesenteric adenitis is the cause for her pain based on her work-up and imaging finding. This is most commonly seen in pediatric patients, although it can be seen in patients as old as 20. This condition can be seen following a cold or viral illness, which is consistent with the patient's history. Pain can mimic appendicitis due to the localization in RLQ. This is a self-limited condition, which can last up to 4 weeks. Recommendation is for supportive care and pain management. If the patient's pain persists past the next week or so, then I would recommend considering colonoscopy (to rule-out IBD) +/- EGD (given n/v complaints -- low risk for PUD). Regarding the liver lesion, I do not think that this lesion is contributing to the patient's pain, particularly as she is most tender in RLQ. I suspect the liver lesion is a focal nodular hyperplasia (benign lesion) given description of lesion with suggestion of a central scar. She needs an MRI abdomen with and without contrast to further characterize this liver lesion, and this has been ordered in outpatient setting. - Recommend IV fluids while in the ER with pain medication on discharge. Can use Zofran as needed for nausea/vomiting. Would also recommend use of a PPI once daily for at least the next few weeks. If symptoms do not improve over the next week, then we would consider further endoscopic evaluation as discussed above. The patient will contact the clinic if symptoms fail to improve or worsen. Thank you very much for this consult. Please contact GI with any additional questions or concerns. [id number]/[facility] #: [id number] OLEG
== END 2019-03-06 17:35 | disposition home or self-care (01) ==
LOC: ED 09:30
DX: R10.31 Right lower quadrant pain (principal); I88.0 Nonspecific mesenteric lymphadenitis; K76.89 Other specified diseases of liver; R11.2 Nausea with vomiting, unspecified; R19.4 Change in bowel habit; G50.0 Trigeminal neuralgia; Z88.1 Allergy status to other antibiotic agents
CPT/HCPCS: 36415; 74177; 80053; 81003; 83605; 83690; 84702; 85025; 85610; 85730; 86140; 96374; 96375; 99283; J1885; J2270; J2405; J2765; Q9967

== ENCOUNTER 2023-11-01 15:20 | Observation (INO) ==
[2023-11-01] MEDS ORDERED: Ondansetron 4 mg VIAL 2 MG/ML 2 ml VIAL IV ONE (18:33)
[2023-11-01] MEDS ORDERED: Lactated Ringers 1000 ml BAG 1,000 ML IV ONE (18:33)
[2023-11-01 18:49] LABS: ABS Basophils 0.1 10^3/uL (0.0-0.1); ABS Eosinophils 0.2 10^3/uL (0.0-0.5); ABS Lymphocytes 2.6 10^3/uL (1.0-4.8); ABS Neutrophils 10.3 10^3/uL (1.5-7.6); ABS Nucleated RBC 0.01 10^3/ul; Eosinophil % 1.4 %; Hematocrit 43.4 % (35-45); Hemoglobin 14.4 g/dL (11.5-14.3); Lymphocyte % 18.1 %; Mean Corpuscular Hemoglobin 27.4 pg (27-33); Mean Corpuscular Hgb Conc 33.1 g/dL (31-36); Mean Corpuscular Volume 82.8 fL (80-97); Mean Platelet Volume 8.4 fL (7.5-11.2); Nucleated Red Blood Cells % 0.1 %/100WBC (0.0-0.8); Platelet Count 305 10^3/uL (150-450); Red Blood Count 5.24 10^6/uL (3.63-4.92); Red Cell Distribution Width 14.8 % (12-17); White Blood Count 14.2 10^3/uL (3.8-11.8)
[2023-11-01 19:20] LABS: Albumin 4.5 g/dL (3.2-5.2); Albumin/Globulin Ratio 1.5 (1-3); C Reactive Protein 11.5 mg/L (<8.01); Calcium 9.9 mg/dL (8.6-10.3); Creatinine, Serum 0.68 mg/dL (0.51-0.95); Globulin 3.1 g/dL (2-4); Potassium 4.1 mmol/L (3.5-5.0); Total Bilirubin 0.3 mg/dL (0.2-1.0); Total Protein 7.6 g/dL (6.4-8.9); eGFR CKD-EPI 124.6 (>60)
[2023-11-01] MEDS ORDERED: Morphine 4 MG/ML VIAL (1 ml) IV ONE (19:50)
[2023-11-01] MEDS ORDERED: Iohexol 350 (CONTRAST) 500 ML MDV IV ONE (22:36)
[2023-11-02] MEDS ORDERED: Morphine 4 MG/ML VIAL (1 ml) IV ONE (00:08)
[2023-11-02] MEDS ORDERED: Senna TAB 8.6 mg TAB PO PRN (01:51)
[2023-11-02] MEDS: Polyethylene Glycol 3350 17 GM PACKET PO SCH ×2 (01:58→09:07)
[2023-11-02] MEDS: Ondansetron 4 mg VIAL 2 MG/ML 2 ml VIAL IV PRN ×2 (03:36→09:22)
[2023-11-02] MEDS: HYDROmorphone 1 MG/1 ML SYRINGE IV PRN ×3 (04:20→11:18)
[2023-11-02 08:31] LABS: ABS Eosinophils 0.2 10^3/uL (0.0-0.5); ABS Lymphocytes 2.8 10^3/uL (1.0-4.8); ABS Monocytes 1.1 10^3/uL (0.0-0.9); ABS Neutrophils 6.1 10^3/uL (1.5-7.6); ABS Nucleated RBC 0.01 10^3/ul; Eosinophil % 1.9 %; Hematocrit 40.5 % (35-45); Hemoglobin 13.3 g/dL (11.5-14.3); Lymphocyte % 27.5 %; Mean Corpuscular Hemoglobin 27.4 pg (27-33); Mean Corpuscular Hgb Conc 32.8 g/dL (31-36); Mean Corpuscular Volume 83.5 fL (80-97); Mean Platelet Volume 8.3 fL (7.5-11.2); Nucleated Red Blood Cells % 0.1 %/100WBC (0.0-0.8); Platelet Count 272 10^3/uL (150-450); Red Blood Count 4.85 10^6/uL (3.63-4.92); Red Cell Distribution Width 14.8 % (12-17); White Blood Count 10.2 10^3/uL (3.8-11.8)
[2023-11-02 08:47] LABS: Calcium 9.4 mg/dL (8.6-10.3); Creatinine, Serum 0.72 mg/dL (0.51-0.95); Magnesium 1.8 mg/dL (1.9-2.7); Potassium 3.8 mmol/L (3.5-5.0); eGFR CKD-EPI 119.7 (>60)
[2023-11-02] MEDS: Enoxaparin 40 MG/0.4 ML SYR SUBCUT SCH (09:06)
[2023-11-02] MEDS ORDERED: Magnesium Sulfate 2 gm BAG 2 GM/50 ML BAG IVPB ONE (10:30)
[2023-11-02] MEDS ORDERED: Prochlorperazine 5 mg/ml 2 ml VIAL (10 mg) IV PRN (10:52)
[2023-11-02] MEDS ORDERED: HYDROmorphone 1 MG/1 ML SYRINGE IV PRN (13:14)
[2023-11-02] MEDS: Lactated Ringers 1000 ml BAG 1,000 ML IV SCH ×2 (17:08→23:59)
[2023-11-03 07:00] LABS: ABS Basophils 0.1 10^3/uL (0.0-0.1); ABS Eosinophils 0.1 10^3/uL (0.0-0.5); ABS Lymphocytes 1.9 10^3/uL (1.0-4.8); ABS Monocytes 0.8 10^3/uL (0.0-0.9); ABS Neutrophils 6.6 10^3/uL (1.5-7.6); ABS Nucleated RBC 0.01 10^3/ul; Eosinophil % 0.8 %; Hematocrit 38.7 % (35-45); Hemoglobin 12.6 g/dL (11.5-14.3); Lymphocyte % 19.6 %; Mean Corpuscular Hemoglobin 27.2 pg (27-33); Mean Corpuscular Hgb Conc 32.6 g/dL (31-36); Mean Corpuscular Volume 83.4 fL (80-97); Mean Platelet Volume 8.7 fL (7.5-11.2); Nucleated Red Blood Cells % 0.1 %/100WBC (0.0-0.8); Platelet Count 250 10^3/uL (150-450); Red Blood Count 4.64 10^6/uL (3.63-4.92); Red Cell Distribution Width 14.8 % (12-17); White Blood Count 9.4 10^3/uL (3.8-11.8)
[2023-11-03 07:17] LABS: Calcium 9.1 mg/dL (8.6-10.3); Creatinine, Serum 0.61 mg/dL (0.51-0.95); Magnesium 1.8 mg/dL (1.9-2.7); Potassium 3.8 mmol/L (3.5-5.0)
[2023-11-03] MEDS: Enoxaparin 40 MG/0.4 ML SYR SUBCUT SCH (08:30)
[2023-11-03] MEDS: Polyethylene Glycol 3350 17 GM PACKET PO SCH (08:31)
[2023-11-03] MEDS ORDERED: Dextrose 50% Syringe 50 ml 25 GM/50 ML SYRINGE IV PUSH PRN (08:39)
[2023-11-03] MEDS ORDERED: Magnesium Sulfate 2 gm BAG 2 GM/50 ML BAG IVPB ONE (08:47)
[2023-11-03 09:43] VITALS: BP 122/69
== END 2023-11-03 14:05 | disposition home or self-care (01) ==
LOC: EDHOLD 15:20 → ED 15:20 → SUATTDRO 11-02 01:46 → MED 11-02 04:14
PROVIDERS: ADMIT Internal Medicine; ATTEND Student in an Organized Health Care Education/Training Program